=== PATIENT | male | born 1980 | race Caucasian/White ===

== ENCOUNTER 2022-07-17 13:54 | Inpatient (IN) ==
[2022-07-17 14:42] LABS: Bilirubin,Urine Negative (Negative); Blood,Urine Negative (Negative); Clarity,Urine Clear (Clear); Color,Urine Yellow (Yellow); Glucose,Urine (UA) Normal (Normal); Ketones,Urine Negative (Negative); Leukocyte Esterase,Urine Negative (Negative); Nitrite,Urine Negative (Negative); Protein,Urine Trace mg/dL (Neg-Trace); Specific Gravity,Urine 1.028 (1.010-1.025); Urobilinogen,Urine Normal (Normal)
[2022-07-17 14:54] LABS: Basophils % 0.6 %; Eosinophils % 0.6 %; Hematocrit 42.5 % (37.5-50.1); Hemoglobin 14.8 g/dL (12.9-16.9); Immature Granulocytes % 0.2 % (0-4); Lymphocytes # 0.5 K/mcL (0.6-4.6); Lymphocytes % 9.5 %; Mean Corpuscular HGB Conc 34.8 g/dL (31.6-35.5); Mean Corpuscular Hemoglobin 32.4 pg (28.0-33.3); Mean Platelet Volume 10.3 fL (9.4-12.4); Monocytes % 22.5 %; Neutrophils # 3.4 K/mcL (1.6-8.9); Platelet Count 234 K/mcL (140-400); Red Blood Count 4.57 M/mcL (4.19-5.50); Red Cell Distribution Width 12.2 % (11.5-14.5); Segmented Neutrophils % 66.6 %
[2022-07-17 15:01] LABS: Amphetamine Screen,Urine Negative ng/mL (Cutoff=1000); Barbiturate Screen,Urine Negative ng/mL (Cutoff=200); Benzodiazepines Screen,Urine Negative ng/mL (Cutoff=200); Cannabinoid Screen,Urine Negative ng/mL (Cutoff = 50); Cocaine Screen,Urine Negative ng/mL (Cutoff= 300); Opiate Screen,Urine Negative ng/mL (Cutoff=300); Phencyclidine Screen,Urine Negative ng/mL (Cutoff=25)
[2022-07-17 15:09] LABS: Monocytes # 1.2 K/mcL (0.0-1.3); White Blood Count 5.1 K/mcL (4.3-11.1)
[2022-07-17 15:10] LABS: Platelet Estimate Normal (Normal)
[2022-07-17 15:29] LABS: Acetaminophen < 10 mcg/mL (10-20); BUN/Creatinine Ratio 12 (6-26); Blood Urea Nitrogen 13 mg/dL (6-20); Calcium 9.5 mg/dL (8.6-10.3); Carbon Dioxide 26 mEq/L (23-29); Chloride 101 mEq/L (98-107); Chol/HDL Ratio 3.7 (0-4.9); Cholesterol 170 mg/dL (< 200); Ethanol < 10 mg/dL (Less than 10); Glucose 171 mg/dL (70-105); HDL Cholesterol 46 mg/dL (40-59); LDL Cholesterol,Calculated 102 mg/dL (< 100); Osmolality,Calculated 288 (280-300); Potassium 3.4 mEq/L (3.5-5.1); Salicylate < 2.5 mg/dL (15.0-30.0); Sodium 137 mEq/L (136-145); Triglycerides 109 mg/dL (< 150)
[2022-07-17 17:03] LABS: Estimated Average Glucose 111 mg/dl; Hemoglobin A1C 5.5 %
[2022-07-17 22:20] LABS: Influenza A PCR Negative (Negative); Influenza B PCR Negative (Negative); Resp. Syncytial Virus PCR Negative (Negative)
[2022-07-17 22:25] LABS: SARS-CoV-2 by PCR (In House) Positive (Negative)
[2022-07-18] MEDS ORDERED: Ondansetron ODT 4 MG TAB.RAPDIS SL PRN (00:48)
[2022-07-18] MEDS ORDERED: Melatonin 3 MG TABLET PO PRN (00:48)
[2022-07-18] MEDS ORDERED: Naloxone 0.4 MG/ML INJ IVP PRN (00:48)
[2022-07-18] MEDS ORDERED: Acetaminophen 325 MG TABLET PO PRN (00:48)
[2022-07-18] MEDS ORDERED: Ipratropium 1 PUFF INHALER IH PRN (00:49)
[2022-07-18] MEDS ORDERED: Chloraseptic Spray 177 ML BOTTLE MM PRN (00:49)
[2022-07-18] MEDS ORDERED: Potassium Chloride Elixir 20 MEQ/15 ML UDC PO ONE (02:09)
[2022-07-18] MEDS: *HR* Enoxaparin 40 MG/0.4 ML SYRINGE SQ SCH (06:12)
[2022-07-18] MEDS: Multivit/Ca/Min/Fe/FA 1 TAB TABLET PO SCH (16:07)
[2022-07-18 17:12] LABS: BUN/Creatinine Ratio 13 (6-26); Blood Urea Nitrogen 13 mg/dL (6-20); C-Reactive Protein < 5 mg/L (Less than 10); Carbon Dioxide 27 mEq/L (23-29); Chloride 103 mEq/L (98-107); Glucose 112 mg/dL (70-105); Lactate Dehydrogenase 128 Units/L (140-271); Magnesium 1.7 mg/dL (1.6-2.6); Osmolality,Calculated 287 (280-300); Phosphorous 4.3 mg/dL (2.7-4.5); Potassium 3.8 mEq/L (3.5-5.1); Sodium 138 mEq/L (136-145)
[2022-07-18 21:16] LABS: Ferritin 188 ng/mL (20-250)
[2022-07-19] MEDS: *HR* Enoxaparin 40 MG/0.4 ML SYRINGE SQ SCH (06:48)
[2022-07-19] MEDS: Multivit/Ca/Min/Fe/FA 1 TAB TABLET PO SCH (08:17)
[2022-07-19] MEDS: Nicotine 21 MG PATCH.TD24 TD SCH (20:16)
[2022-07-20] MEDS: *HR* Enoxaparin 40 MG/0.4 ML SYRINGE SQ SCH (05:28)
[2022-07-20] MEDS: Multivit/Ca/Min/Fe/FA 1 TAB TABLET PO SCH (08:32)
[2022-07-20] MEDS: Nicotine 21 MG PATCH.TD24 TD SCH (08:32)
[2022-07-20 08:36] VITALS: BP 125/82; PULSE 74; TEMP 97.7; O2SAT 99
[2022-07-20] MEDS ORDERED: Nicotine 2 MG GUM BC PRN (10:33)
== END 2022-07-20 15:37 | disposition home or self-care (01) | DRG 720 ==
LOC: EMEROOARM 13:54 → 3BNU 13:54 → SUATTDRO 07-18 19:13
PROVIDERS: ADMIT Internal Medicine; ATTEND Family Medicine